=== PATIENT | female | born 1960 | race Caucasian/White ===

== ENCOUNTER 2019-08-29 18:36 | Emergency (ER) | payer SELFPAY ==
[2019-08-29 18:43] VITALS: BP 99/64
[2019-08-29] MEDS ORDERED: HYDROCODONE/ACETAMINOPHEN 5-325 MG TABLET PO ONE (19:15)
[2019-08-29] MEDS ORDERED: NORMAL SALINE 1000 ML 1,000 ML IV ONE (19:18)
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
[2019-08-29 20:10] LABS: ABSOLUTE LYMPHOCYTES (AUTO) 1.7 10^3/uL (0.5-4.7); ABSOLUTE MONOCYTES (AUTO) 0.7 10^3/uL (0.1-1.4); ABSOLUTE NEUT (AUTO) 10.5 10^3/uL (1.7-8.2); BASOPHILS % (AUTO) 0.2 % (0-2); EOSINOPHILS % (AUTO) 0.1 % (0-6); HEMATOCRIT 44.2 % (36.0-47.0); HEMOGLOBIN 15.4 g/dL (12.0-15.5); LYMPHOCYTES % (AUTO) 13.1 % (13-45); MEAN CORPUSCULAR HEMOGLOBIN 33.5 pg (27.0-33.4); MEAN CORPUSCULAR HGB CONC 34.8 g/dL (32.0-36.0); MEAN CORPUSCULAR VOLUME 96 fl (80-97); MONOCYTES % (AUTO) 5.1 % (3-13); PLATELET COUNT 311 10^3/uL (150-450); RED BLOOD COUNT 4.59 10^6/uL (3.72-5.28); RED CELL DISTRIBUTION WIDTH 12.6 % (11.5-14.0); SEGMENTED NEUTROPHILS % (AUTO) 81.5 % (42-78); TOTAL CELLS COUNTED % (AUTO) 100 %; WHITE BLOOD COUNT 12.9 10^3/uL (4.0-10.5)
[2019-08-29 20:32] LABS: ALKALINE PHOSPHATASE 101 U/L (38-126); ANION GAP 8 (5-19); ASPARTATE AMINO TRANSFERASE 32 U/L (14-36); BILIRUBIN,DIRECT 0.3 mg/dL (0.0-0.4); BILIRUBIN,TOTAL 0.6 mg/dL (0.2-1.3); BLOOD UREA NITROGEN 18 mg/dL (7-20); CALCIUM 9.8 mg/dL (8.4-10.2); CARBON DIOXIDE 32 mmol/L (22-30); CHLORIDE 98 mmol/L (98-107); GLUCOSE 99 mg/dL (75-110); POTASSIUM 4.3 mmol/L (3.6-5.0); TOTAL PROTEIN 7.9 g/dL (6.3-8.2)
== END 2019-08-29 22:14 | disposition left against medical advice (07) ==
LOC: ER 18:36
DX: Z53.21 Procedure and treatment not carried out due to patient leaving prior to being seen by health care provider (principal); M54.9 Dorsalgia, unspecified; R10.9 Unspecified abdominal pain; F41.9 Anxiety disorder, unspecified; W07.XXXA Fall from chair, initial encounter
CPT/HCPCS: 36415; 80053; 85025; 99281

== ENCOUNTER 2020-05-10 17:53 | Emergency (ER) | payer MEDICARE, MEDICAID ==
[2020-05-10 18:02] VITALS: BP 97/59
--- NOTE | 2020-05-10 18:32 | ER Document Report ---
ED Medical Screen (RME) - General Chief Complaint: Incision Problem Stated Complaint: SURGICAL INCISION OPENENING Time Seen by Provider: 05/10/20 18:30 Primary Care Provider: SONYA SPEARS MD [Primary Care Provider] - Follow up as needed Mode of Arrival: Ambulatory Information source: Patient Notes: 59-year-old female presented to ED for complications from a surgical procedure. She states that on May 03 she had a bladder stimulator removed by Dr. Barragan in [place] [facility]. She states she had a bladder stimulator inserted due to incontinence of urine. She states she had some inch problem with the stimulator states she had it removed. She states she reached back to scratch her back and she felt a hole in the area where the stimulator was. Surgical site is open where the incision dehisced. She states it was just glue during the surgery. She states is no pain there is no drainage there is no fever there is just a gaping hole. She states she called the on-call line and they told her to come to the emergency room. I have greeted and performed a rapid initial assessment of this patient. A comprehensive ED assessment and evaluation of the patient, analysis of test results and completion of medical decision making process will be conducted by an additional ED providers. TRAVEL OUTSIDE OF THE [place] IN LAST 30 DAYS: No - Related Data Allergies/Adverse Reactions: No Known Allergies Allergy (Verified 05/10/20 18:20) Past Medical History - Social History Frequency of alcohol use: None Drug Abuse: None Physical Exam - Vital signs Vitals: Temp Pulse Resp BP Pulse Ox 98.8 F 68 18 97/59 L 96 05/10/20 18:00 05/10/20 18:00 05/10/20 18:00 05/10/20 18:00 05/10/20 18:00 Course - Vital Signs Vital signs: Temp Pulse Resp BP Pulse Ox 98.8 F 68 18 97/59 L 96 05/10/20 18:20 05/10/20 18:00 05/10/20 18:00 05/10/20 18:00 05/10/20 18:00 Doctor's Discharge - Discharge Referrals: SONYA SPEARS MD [Primary Care Provider] - Follow up as needed
== END 2020-05-10 18:36 | disposition left against medical advice (07) ==
LOC: ER 17:53
DX: T81.31XA Disruption of external operation (surgical) wound, not elsewhere classified, initial encounter (principal); Y83.8 Other surgical procedures as the cause of abnormal reaction of the patient, or of later complication, without mention of misadventure at the time of the procedure; Z53.20 Procedure and treatment not carried out because of patient's decision for unspecified reasons
CPT/HCPCS: 99281